=== PATIENT | male | born 1980 | race Caucasian/White ===

== ENCOUNTER 2017-12-08 01:05 | Inpatient (IN) | payer SELFPAY ==
[2017-12-08] VITALS (8 sets, daily range): BP systolic 92–168; BP diastolic 60–110
[~2017-12-08] VITALS: Ht 188 cm; Wt 127.0 kg
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
[2017-12-08 02:20] LABS: ABSOLUTE BASOPHIL COUNT 0.1 /CUMM (0.0-0.2); ABSOLUTE EOSINOPHIL COUNT 0 /CUMM (0.0-0.7); ABSOLUTE GRANULOCYTE CT 5.6 /CUMM (1.4-6.5); ABSOLUTE LYMPH COUNT 1.3 /CUMM (1.2-3.4); ABSOLUTE MONOCYTE COUNT 0.4 /CUMM (0.10-0.60); EOSINOPHIL % 0.6 % (0-5); GRANULOCYTE % 75.5 % (42.2-75.2); HEMATOCRIT 45.4 % (42-52); MEAN CORPUSCULAR HGB 25.8 PG (27.0-31.0); MEAN CORPUSCULAR VOLUME 78.2 FL (80.0-94.0); MEAN PLATELET VOLUME 7.3 FL (7.4-10.4); PLATELET COUNT 332 /CUMM (130-400); WHITE BLOOD CELL COUNT 7.5 /CUMM (4.8-10.8)
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
[2017-12-08] MEDS ORDERED: OXCARBAZEPINE300 M1 PO (13:38)
[2017-12-08] MEDS ORDERED: SERTRALINE HCL100 MG PO (13:38)
[2017-12-08] MEDS ORDERED: LEVOTHYROXINE150 MCG PO (13:39)
[2017-12-08] MEDS ORDERED: FOLIC ACID1 M1 PO (13:39)
[2017-12-08] MEDS ORDERED: LISINOPRIL20 M1 PO (13:40)
[2017-12-08] MEDS ORDERED: PRAZOSIN HCL2 M1 PO (13:40)
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
[2017-12-09] VITALS (16 sets, daily range): BP systolic 92–145; BP diastolic 54–78
--- NOTE | 2017-12-09 07:49 | History & Physical ---
General Information and HPI MD Statement: I have seen and personally examined TAVON GOTTLIEB and documented this H&P. The patient is a 37 year old M who presented with a patient stated chief complaint of [major depressive disorder and alcohol detox]. Source of Information: patient Exam Limitations: no limitations History of Present Illness: This patient is a 37-year-old male with a significant past medical history for alcohol withdrawal seizures, major depressive disorder, PTSD went to the ED for alcohol withdrawals and wanting to detox. Patient reports drinking at least fifteen, 24 oz. cans of FourLoco daily and/or a fifth of bourbon, and has drank daily since 14 years old. His last drink was right before dinner prior to admission. The patient was in [place] en route to his home in [place], when he started to have worsened nausea, dry heaves, blurred vision, cold sweats, and anxiety. Once he hit CT, he could not handle the symptoms so he presented to the ED. The patient reports that his last attempt left him in the ICU for seizures. Patient has had two occurrences of seizures from withdrawal. Patient denies delirium tremens, auditory, tactile, or visual hallucinations. ED course includes stable vitals, utox positive for benzos and serum ETOH 25.0. Allergies/Medications Allergies: Coded Allergies: cheese (GAGS AND VOMIT 12/08/17) Home Med list Folic Acid 1 MG TABLET 1 TAB PO DAILY SUPPLEMENT (Reported) Levothyroxine Sodium 150 MCG TABLET 1 TAB PO DAILY THYROID (Reported) Lisinopril 20 MG TABLET 1 TAB PO DAILY BP (Reported) Oxcarbazepine (Unknown Strength) TABLET (Unknown Dose) PO BID SEIZURES ( Reported) Prazosin HCl 2 MG CAPSULE 1 CAP PO QPM MENTAL HEALTH (Reported) Sertraline HCl 100 MG TABLET 1.5 TAB PO DAILY MENTAL HEALTH (Reported) Past History Travel History Traveled to [place] past 21 day No Medical History Neurological: WITHDRAWAL SEIZURE EENT: NONE Cardiovascular: hypertension Respiratory: NONE Gastrointestinal: GERD Hepatic: NONE Renal: NONE Musculoskeletal: NONE Psychiatric: alcohol dependence, anxiety, depression, PTSD Endocrine: hypothyroidism Blood Disorders: NONE Cancer(s): NONE 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 Other Smoking Status: Former Smoker ETOH Use: alcoholic Illicit Drug Use: marijuana Review of Systems Review of Systems Constitutional: Reports: see HPI. Comments 12 point review of symptoms please see above HPI Exam & Diagnostic Data Last 24 Hrs of Vital Signs/I&O Vital Signs Date Time Temp Pulse Resp B/P B/P Pulse O2 O2 Flow FiO2 Mean Ox Delivery Rate 12/09 0601 101 143/66 08/05 0423 98.3 90 120/54 08/05 0208 86 104/55 08/05 0052 96.9 109 92/60 08/05 0012 97.9 95 110/60 08/04 2236 96.9 109 92/60 95 08/04 2210 98.2 112 118/62 08/04 2209 98.2 112 118/62 /04 2051 94 144/79 / 2012 97.6 94 18 144/79 98 Room Air 08/04 1929 98 18 138/82 97 Room Air 08/04 1734 97.2 94 18 147/82 97 Room Air 08/04 1611 117 168/110 08/04 1429 98.4 109 18 168/110 08/04 1429 98.4 109 18 168/110 96 Room Air 08/04 1259 Room Air 08/04 1111 99.2 110 18 142/75 08/04 0904 99.2 117 18 126/82 08/04 0902 117 126/82 08/04 0845 99.2 117 18 126/82 97 Room Air Room Air Intake & Output 08/05 0800 08/05 0000 08/04 1600 Intake Total Output Total Balance Patient 280 lb Weight Physical Exam General Appearance Alert, Oriented X3, Cooperative Skin No Rashes, No Breakdown HEENT Atraumatic, PERRLA, EOMI Neck Supple, No JVD Lymphatic Axillary nl, Cervical nl Cardiovascular Regular Rate, Normal S1, Normal S2 Lungs Clear to Auscultation, Normal Air Movement Abdomen Normal Bowel Sounds, Soft, No Tenderness Neurological Normal Gait, Normal Speech Extremities No Clubbing, No Cyanosis, No Edema Vascular Normal Pulses Last 24 Hrs of Labs/Eric: Laboratory Tests Assessment/Plan Assessment: This patient is a 37-year-old male with a significant past medical history for alcohol withdrawal seizures, major depressive disorder, PTSD went to the ED for alcohol withdrawals and wanting to detox. Patient reports drinking at least fifteen, 24 oz. cans of FourLoco daily and/or a fifth of bourbon, and has drank daily since 14 years old. His last drink was right before dinner prior to admission. The patient was in [place] en route to his home in [place], when he started to have worsened nausea, dry heaves, blurred vision, cold sweats, and anxiety. Once he hit CT, he could not handle the symptoms so he presented to the ED. The patient reports that his last attempt left him in the ICU for seizures. Patient has had two occurrences of seizures from withdrawal. Patient denies delirium tremens, auditory, tactile, or visual hallucinations. ED course includes stable vitals, utox positive for benzos and serum ETOH 25.0. Will continue home meds. CPS to call with further questions. As Ranked By This Provider Problem List: 1. Depression 2. Alcohol abuse Core Measures/Misc (01/21) Acute Coronary Syndrome ACS Diagnosis: No Congestive Heart Failure Congestive Heart Failure Diagnosis No Cerebrovascular Accident CVA/TIA Diagnosis: No VTE (View Protocol) VTE Risk Factors No risk factors No Mechanical VTE Prophylaxis d/t LowRisk-No Interven Req'd No VTE Pharm Prophylaxis d/t LowRisk-No Interven Req'd Sepsis (View protocol) Sepsis Present: No If YES complete Sepsis Event Note If YES complete Sepsis Event Note Attending MD Review Statement Attending Statement Attending MD Statement: examined this patient, reviewed EMR data (avail) Attending Assessment/Plan: This patient is a 37-year-old male with a significant past medical history for alcohol withdrawal seizures, major depressive disorder, PTSD went to the ED for alcohol withdrawals and wanting to detox. Patient reports drinking at least fifteen, 24 oz. cans of FourLoco daily and/or a fifth of bourbon, and has drank daily since 14 years old. His last drink was right before dinner prior to admission. The patient was in [place] en route to his home in [place], when he started to have worsened nausea, dry heaves, blurred vision, cold sweats, and anxiety. Once he hit CT, he could not handle the symptoms so he presented to the ED. The patient reports that his last attempt left him in the ICU for seizures. Patient has had two occurrences of seizures from withdrawal. Patient denies delirium tremens, auditory, tactile, or visual hallucinations. ED course includes stable vitals, utox positive for benzos and serum ETOH 25.0. Will continue home meds. CPS to call with further questions.
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
[2017-12-10 02:23] VITALS: BP 142/81
[2017-12-10 05:06] VITALS: BP 139/96
[2017-12-10 07:59] VITALS: BP 142/71
[2017-12-10 08:40] VITALS: BP 142/71
[2017-12-10] MEDS ORDERED: ONE DAILY MULT1 EAC2 PO ×2 (10:38→11:51)
[2017-12-10] MEDS ORDERED: OLANZAPINE5 M2 PO ×2 (10:38→11:52)
[2017-12-10] MEDS ORDERED: LEVOTHYROXINE150 MCG PO (10:38)
[2017-12-10] MEDS ORDERED: VITAMIN B-1100 MG PO (10:38)
[2017-12-10] MEDS ORDERED: SERTRALINE HCL100 MG PO (10:38)
[2017-12-10] MEDS ORDERED: LISINOPRIL20 M1 PO ×2 (10:38→11:47)
[2017-12-10] MEDS ORDERED: ATIVAN1 M1 PO ×2 (10:40→11:58)
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
[2017-12-10] MEDS ORDERED: ZOLOFT100 M1 PO (11:47)
[2017-12-10] MEDS ORDERED: SYNTHROID150 MCG PO (11:47)
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
== END 2017-12-10 12:31 | DRG 885 ==
LOC: ERH 01:05 → ERHI 20:37 → CP SOUTH 21:15
PROVIDERS: Emergency Medicine; Student in an Organized Health Care Education/Training Program
DX: F39 Unspecified mood [affective] disorder (principal); F12.90 Cannabis use, unspecified, uncomplicated; F10.10 Alcohol abuse, uncomplicated; I10 Essential (primary) hypertension; K21.9 Gastro-esophageal reflux disease without esophagitis; E03.9 Hypothyroidism, unspecified
CPT/HCPCS: 36415; 80307; 82436; G0463; G0480; J3101; J3490